=== PATIENT | female | born 1980 | race Caucasian/White ===

== ENCOUNTER 2016-07-15 12:29 | Inpatient (IN) | payer BC, MEDICARE ==
[2016-07-15 12:52] LABS: Glucose,Whole Blood 167 mg/dL (75-99)
--- NOTE | 2016-07-15 13:32 | ED ---
Altered Mental Status HPI - General Chief Complaint: Altered Mental Status Stated Complaint: mental health Time Seen by Provider: 07/15/16 12:29 Source: EMS, RN notes reviewed, old records reviewed Mode of arrival: EMS Limitations: no limitations - History of Present Illness Initial Comments: This is a 36-year-old female history depression who apparently was in the shower for 10 hours until prior to arrival. Her significant other called EMS because she was in the shower when I get out. She was brought in by EMS and she was not very responsive to them with responsive questions are answered. She did maintain a pulse and blood pressure. She demonstrated no respiratory distress he is also demonstrated a very flat affect and would not speak anyone. She apparently has been here with a similar scenario before. No reports of any trauma fevers chills sweats or other symptoms MD Complaint: altered mental status, decreased responsiveness - Related Data Home Medications Medication Instructions Recorded Confirmed Buprenorphine HCl/Naloxone HCl 1.25 film SL DAILY 11/30/15 07/15/16 [Suboxone 8 mg-2 mg Sl Film] Baclofen [Lioresal] 10 mg PO TID 01/27/16 07/15/16 Gabapentin [Neurontin] 100 mg PO TID 01/27/16 07/15/16 traZODone HCL 50 mg PO HS 07/15/16 07/15/16 Allergies Allergy/AdvReac Type Severity Reaction Status Date / Time aspirin Allergy Unknown Verified 07/15/16 12:49 banana Allergy Unknown Verified 07/15/16 12:49 levofloxacin [From Levaquin] Allergy Unknown Verified 07/15/16 12:49 lactose AdvReac Unknown Verified 07/15/16 12:49 Review of Systems ROS Statement: Those systems with pertinent positive or pertinent negative responses have been documented in the HPI. ROS Other: All systems not noted in ROS Statement are negative. Limitations: ROS unobtainable due to patients medical condition Past Medical History Past Medical History: CVA/TIA, Fibromyalgia, Myocardial Infarction ([place]), Seizure Disorder, Thyroid Disorder Additional Past Medical History / Comment(s): Acute kidney injury requiring hemodialysis, Crohn's, CVA at 28 years of age, [place] at 32 years of age, kidney stones. Last Myocardial Infarction Date:: unknown History of Any Multi-Drug Resistant Organisms: MRSA Date of last positivie culture/infection: 16 YEARS AGO MDRO Source:: ARM Past Surgical History: Bowel Resection Additional Past Surgical History / Comment(s): COLON RESECTION AND ILEOSTOMY, LITHOTRIPSY Past Anesthesia/Blood Transfusion Reactions: Unable to Obtain Past Psychological History: Depression Smoking Status: Never smoker Past Alcohol Use History: None Reported Additional Past Alcohol Use History / Comment(s): Patient states she smoked for only a brief period. She lives at home with her . Past Drug Use History: None Reported - Past Family History Mother Family Medical History: Unable to Obtain Father Family Medical History: Unable to Obtain General Exam - General Exam Comments Initial Comments: This is a well-developed well-nourished lethargic appearing female she is tearful but nonverbal Limitations: no limitations General appearance: alert, lethargic Head exam: Present: atraumatic, normocephalic, normal inspection Eye exam: Present: normal appearance, PERRL, EOMI. Absent: scleral icterus, conjunctival injection, periorbital swelling ENT exam: Present: mucous membranes dry Neck exam: Present: normal inspection. Absent: tenderness, meningismus, lymphadenopathy Respiratory exam: Present: normal lung sounds bilaterally. Absent: respiratory distress, wheezes, rales, rhonchi, stridor Cardiovascular Exam: Present: regular rate, normal rhythm, normal heart sounds. Absent: systolic murmur, diastolic murmur, rubs, gallop, clicks GI/Abdominal exam: Present: soft, normal bowel sounds. Absent: distended, tenderness, guarding, rebound, rigid Extremities exam: Present: normal inspection, full ROM, normal capillary refill , other (Cool to touch). Absent: tenderness, pedal edema, joint swelling, calf tenderness Back exam: Present: normal inspection Neurological exam: Present: alert, altered, CN II-XII intact, reflexes normal. Absent: motor sensory deficit Psychiatric exam: Present: depressed, flat affect Skin exam: Present: dry, intact. Absent: rash Course Vital Signs 07/15/16 07/15/16 07/15/16 12:49 13:49 14:51 Temperature 95.4 F L Pulse Rate 72 89 92 Respiratory 16 18 16 Rate Blood Pressure 175/96 142/89 177/78 O2 Sat by Pulse 96 98 99 Oximetry 07/15/16 07/15/16 15:47 16:58 Temperature Pulse Rate 90 80 Respiratory 20 18 Rate Blood Pressure 157/89 137/89 O2 Sat by Pulse 97 97 Oximetry - Reevaluation(s) Reevaluation #1: 07/15/16 18:10 Patient was noted to be somewhat more responsive after IV fluids. Urine output was negligible initially. A Cortez did require placement Medical Decision Making - Medical Decision Making I did discuss the findings with Dr. Gann and Dr. Guerrero. Patient will be admitted to intensive care unit for IV fluids and further management and evaluation. She is more responsive. Nephrology will be consulted. She will be placed on IV antibiotics continued evaluation of possible sepsis. This likely the majority the abnormal labs including the reactive leukocytosis and lactate is secondary to the renal function. The patient did demonstrate oliguria initially until IV fluids were established. The patient thus far as is maintained her blood pressure pulse and respiratory abilities and again has become more responsive - Lab Data Result diagrams: 07/15/16 13:47 07/15/16 13:47 Lab Results 07/15/16 07/15/16 07/15/16 Range/Units 12:42 13:47 13:47 WBC 39.3 H* (3.8-10.6) k/uL RBC 5.36 (3.80-5.40) m/uL Hgb 14.1 (11.4-16.0) gm/dL Hct 44.0 (34.0-46.0) % MCV 82.0 (80.0-100.0) fL MCH 26.3 (25.0-35.0) pg MCHC 32.1 (31.0-37.0) g/dL RDW 14.7 (11.5-15.5) % Plt Count 794 H (150-450) k/uL Neutrophils % 92 % Lymphocytes % 4 % Monocytes % 3 % Eosinophils % 0 % Basophils % 0 % Neutrophils # 36.1 H (1.3-7.7) k/uL Lymphocytes # 1.6 (1.0-4.8) k/uL Monocytes # 1.2 H (0-1.0) k/uL Eosinophils # 0.0 (0-0.7) k/uL Basophils # 0.1 (0-0.2) k/uL Sodium 135 L (137-145) mmol/L Potassium 4.9 (3.5-5.1) mmol/L Chloride 88 L (98-107) mmol/L Carbon Dioxide 13 L (22-30) mmol/L Anion Gap 34 mmol/L BUN 64 H (7-17) mg/dL Creatinine 7.99 H* (0.52-1.04) mg/dL Est GFR (MDRD) Af Amer 7 (>60 ml/min/1.73 sqM) Est GFR (MDRD) Non-Af 6 (>60 ml/min/1.73 sqM) Glucose 179 H (74-99) mg/dL POC Glucose (mg/dL) 167 H (75-99) mg/dL POC Glu Teletype Operator ID Nasima Mcrae Plasma Lactic Acid Brayden (0.7-2.0) mmol/L Calcium 10.8 H (8.4-10.2) mg/dL Magnesium 1.9 (1.6-2.3) mg/dL Total Bilirubin 0.7 (0.2-1.3) mg/dL AST 52 H (14-36) U/L ALT 71 H (9-52) U/L Alkaline Phosphatase 160 H (38-126) U/L Ammonia (<30) umol/L Total Creatine Kinase (30-135) U/L CK-MB (CK-2) (0.0-2.4) ng/mL CK-MB (CK-2) Rel Index Troponin I (0.000-0.034) ng/mL Total Protein 10.6 H (6.3-8.2) g/dL Albumin 5.5 H (3.5-5.0) g/dL Urine Color Urine Appearance (Clear) Urine pH (5.0-8.0) Ur Specific Hermosa (1.001-1.035) Urine Protein (Negative) Urine Glucose (UA) (Negative) Urine Ketones (Negative) Urine Blood (Negative) Urine Nitrate (Negative) Urine Bilirubin (Negative) Urine Urobilinogen (<2.0) mg/dL Ur Leukocyte Esterase (Negative) Urine RBC (0-5) /hpf Urine WBC (0-5) /hpf Urine WBC Clumps (None) /hpf Ur Squamous Epith Cells (0-4) /hpf Urine Bacteria (None) /hpf Hyaline Casts (0-2) /lpf Urine Mucus (None) /hpf Urine Yeast (Budding) (None) /hpf Salicylates <1.0 mg/dL Urine Opiates Screen (NotDetected) Ur Oxycodone Screen (NotDetected) Urine Methadone Screen (NotDetected) Ur Propoxyphene Screen (NotDetected) Acetaminophen <10.0 ug/mL Ur Barbiturates Screen (NotDetected) U Tricyclic Antidepress (NotDetected) Ur Phencyclidine Scrn (NotDetected) Ur Amphetamines Screen (NotDetected) U Methamphetamines Scrn (NotDetected) U Benzodiazepines Scrn (NotDetected) Urine Cocaine Screen (NotDetected) U Marijuana (THC) Screen (NotDetected) Serum Alcohol <10 mg/dL 07/15/16 07/15/16 07/15/16 Range/Units 13:47 14:43 15:47 WBC (3.8-10.6) k/uL RBC (3.80-5.40) m/uL Hgb (11.4-16.0) gm/dL Hct (34.0-46.0) % MCV (80.0-100.0) fL MCH (25.0-35.0) pg MCHC (31.0-37.0) g/dL RDW (11.5-15.5) % Plt Count (150-450) k/uL Neutrophils % % Lymphocytes % % Monocytes % % Eosinophils % % Basophils % % Neutrophils # (1.3-7.7) k/uL Lymphocytes # (1.0-4.8) k/uL Monocytes # (0-1.0) k/uL Eosinophils # (0-0.7) k/uL Basophils # (0-0.2) k/uL Sodium (137-145) mmol/L Potassium (3.5-5.1) mmol/L Chloride (98-107) mmol/L Carbon Dioxide (22-30) mmol/L Anion Gap mmol/L BUN (7-17) mg/dL Creatinine (0.52-1.04) mg/dL Est GFR (MDRD) Af Amer (>60 ml/min/1.73 sqM) Est GFR (MDRD) Non-Af (>60 ml/min/1.73 sqM) Glucose (74-99) mg/dL POC Glucose (mg/dL) (75-99) mg/dL POC Glu Teletype Operator ID Plasma Lactic Acid Brayden 3.4 H* (0.7-2.0) mmol/L Calcium (8.4-10.2) mg/dL Magnesium (1.6-2.3) mg/dL Total Bilirubin (0.2-1.3) mg/dL AST (14-36) U/L ALT (9-52) U/L Alkaline Phosphatase (38-126) U/L Ammonia <9 (<30) umol/L Total Creatine Kinase 293 H (30-135) U/L CK-MB (CK-2) 4.5 H* (0.0-2.4) ng/mL CK-MB (CK-2) Rel Index 1.5 Troponin I <0.012 (0.000-0.034) ng/mL Total Protein (6.3-8.2) g/dL Albumin (3.5-5.0) g/dL Urine Color Urine Appearance (Clear) Urine pH (5.0-8.0) Ur Specific [place] (1.001-1.035) Urine Protein (Negative) Urine Glucose (UA) (Negative) Urine Ketones (Negative) Urine Blood (Negative) Urine Nitrate (Negative) Urine Bilirubin (Negative) Urine Urobilinogen (<2.0) mg/dL Ur Leukocyte Esterase (Negative) Urine RBC (0-5) /hpf Urine WBC (0-5) /hpf Urine WBC Clumps (None) /hpf Ur Squamous Epith Cells (0-4) /hpf Urine Bacteria (None) /hpf Hyaline Casts (0-2) /lpf Urine Mucus (None) /hpf Urine Yeast (Budding) (None) /hpf Salicylates mg/dL Urine Opiates Screen (NotDetected) Ur Oxycodone Screen (NotDetected) Urine Methadone Screen (NotDetected) Ur Propoxyphene Screen (NotDetected) Acetaminophen ug/mL Ur Barbiturates Screen (NotDetected) U Tricyclic Antidepress (NotDetected) Ur Phencyclidine Scrn (NotDetected) Ur Amphetamines Screen (NotDetected) U Methamphetamines Scrn (NotDetected) U Benzodiazepines Scrn (NotDetected) Urine Cocaine Screen (NotDetected) U Marijuana (THC) Screen (NotDetected) Serum Alcohol mg/dL 03/10/17 Range/Units 16:28 WBC (3.8-10.6) k/uL RBC (3.80-5.40) m/uL Hgb (11.4-16.0) gm/dL Hct (34.0-46.0) % MCV (80.0-100.0) fL MCH (25.0-35.0) pg MCHC (31.0-37.0) g/dL RDW (11.5-15.5) % Plt Count (150-450) k/uL Neutrophils % % Lymphocytes % % Monocytes % % Eosinophils % % Basophils % % Neutrophils # (1.3-7.7) k/uL Lymphocytes # (1.0-4.8) k/uL Monocytes # (0-1.0) k/uL Eosinophils # (0-0.7) k/uL Basophils # (0-0.2) k/uL Sodium (137-145) mmol/L Potassium (3.5-5.1) mmol/L Chloride (98-107) mmol/L Carbon Dioxide (22-30) mmol/L Anion Gap mmol/L BUN (7-17) mg/dL Creatinine (0.52-1.04) mg/dL Est GFR (MDRD) Af Amer (>60 ml/min/1.73 sqM) Est GFR (MDRD) Non-Af (>60 ml/min/1.73 sqM) Glucose (74-99) mg/dL POC Glucose (mg/dL) (75-99) mg/dL POC Glu Teletype Operator ID Plasma Lactic Acid Brayden (0.7-2.0) mmol/L Calcium (8.4-10.2) mg/dL Magnesium (1.6-2.3) mg/dL Total Bilirubin (0.2-1.3) mg/dL AST (14-36) U/L ALT (9-52) U/L Alkaline Phosphatase (38-126) U/L Ammonia (<30) umol/L Total Creatine Kinase (30-135) U/L CK-MB (CK-2) (0.0-2.4) ng/mL CK-MB (CK-2) Rel Index Troponin I (0.000-0.034) ng/mL Total Protein (6.3-8.2) g/dL Albumin (3.5-5.0) g/dL Urine Color Light Red Urine Appearance Turbid H (Clear) Urine pH 5.5 (5.0-8.0) Ur Specific [place] 1.016 (1.001-1.035) Urine Protein 2+ H (Negative) Urine Glucose (UA) Negative (Negative) Urine Ketones Negative (Negative) Urine Blood Large H (Negative) Urine Nitrate Negative (Negative) Urine Bilirubin Negative (Negative) Urine Urobilinogen <2.0 (<2.0) mg/dL Ur Leukocyte Esterase Large H (Negative) Urine RBC >182 H (0-5) /hpf Urine WBC 56 H (0-5) /hpf Urine WBC Clumps Many H (None) /hpf Ur Squamous Epith Cells 1 (0-4) /hpf Urine Bacteria Many H (None) /hpf Hyaline Casts 139 H (0-2) /lpf Urine Mucus Few H (None) /hpf Urine Yeast (Budding) Many H (None) /hpf Salicylates mg/dL Urine Opiates Screen Not Detected (NotDetected) Ur Oxycodone Screen Not Detected (NotDetected) Urine Methadone Screen Not Detected (NotDetected) Ur Propoxyphene Screen Not Detected (NotDetected) Acetaminophen ug/mL Ur Barbiturates Screen Not Detected (NotDetected) U Tricyclic Antidepress Not Detected (NotDetected) Ur Phencyclidine Scrn Not Detected (NotDetected) Ur Amphetamines Screen Not Detected (NotDetected) U Methamphetamines Scrn Not Detected (NotDetected) U Benzodiazepines Scrn Detected H (NotDetected) Urine Cocaine Screen Not Detected (NotDetected) U Marijuana (THC) Screen Detected H (NotDetected) Serum Alcohol mg/dL - EKG Data -: EKG Interpreted by Fl EKG shows normal: sinus rhythm (Sinus rhythm a rate of 99 appear of 01 18 QRS duration 82 QT/QTC of 398/510 right atrial enlargement prolonged QT st-t wave changes. When compared to an EKG dated 01/23/16 no acute changes.) - Radiology Data Radiology results: report reviewed (Did review the imaging and report no acute findings.), image reviewed Critical Care Time Critical Care Time: Yes Critical Care Time: 45 minutes of critical care time which included the initial monitoring of the EMS run and discussed with paramedics. History physical examination lab and x- ray orders on the patient. CAT scan orders on the patient. Multiple reevaluation the patient for response to therapy. Discussion with the physicians. Orders and documentation above. Also review of history. Disposition Clinical Impression: Acute encephalopathy, Acute renal failure (ARF), Sepsis, Leukocytosis Disposition: ADMITTED IP TO THIS HOSP Condition: Serious
--- NOTE | 2016-07-15 13:43 | XR ---
EXAMINATION TYPE: XR chest 1V portable DATE OF EXAM: 07/15/2016 1:33 PM COMPARISON: 01/26/2016 HISTORY: Altered mental status TECHNIQUE: Single frontal view of the chest is obtained. FINDINGS: There is no focal air space opacity, pleural effusion, or pneumothorax seen. The cardiac silhouette size is within normal limits. The osseous structures are intact. Surgical clips in the r ight upper quadrant abdomen. IMPRESSION: No acute process.
[2016-07-15 14:07] LABS: Basophils # (A) 0.1 k/uL (0-0.2); Basophils % (A) 0 %; Eosinophils % (A) 0 %; HDW 2.85; HGB 14.1 gm/dL (11.4-16.0); Luc # (Auto) 0.24; Luc % (Auto) 1; Lymphocytes # (A) 1.6 k/uL (1.0-4.8); Lymphocytes % (A) 4 %; MCH 26.3 pg (25.0-35.0); MCHC 32.1 g/dL (31.0-37.0); Mean Platelet Volume 6.8; Monocytes # (A) 1.2 k/uL (0-1.0); Monocytes % (A) 3 %; Neutrophils # (A) 36.1 k/uL (1.3-7.7); Neutrophils % (A) 92 %; RBC 5.36 m/uL (3.80-5.40); RDW 14.7 % (11.5-15.5); WBC (Perox) 39.63
[2016-07-15 14:10] LABS: WBC 39.3 k/uL (3.8-10.6)
[2016-07-15 14:15] LABS: ALT 71 U/L (9-52); AST 52 U/L (14-36); Acetaminophen <10.0 ug/mL; Alcohol <10 mg/dL; Alkaline Phosphatase 160 U/L (38-126); Anion Gap 34 mmol/L; Blood Urea Nitrogen 64 mg/dL (7-17); Calcium 10.8 mg/dL (8.4-10.2); Carbon Dioxide 13 mmol/L (22-30); Chloride 88 mmol/L (98-107); Glucose 179 mg/dL (74-99); Magnesium 1.9 mg/dL (1.6-2.3); Potassium 4.9 mmol/L (3.5-5.1); Salicylate <1.0 mg/dL; Sodium 135 mmol/L (137-145); Total Bilirubin 0.7 mg/dL (0.2-1.3); Total Protein 10.6 g/dL (6.3-8.2)
[2016-07-15 14:21] LABS: Non-African American GFR(MDRD) 6 (>60 ml/min/1.73 sqM)
[2016-07-15] MEDS ORDERED: SODIUM CHLORIDE 0.9% 4,000 ML IV ONE (14:29)
[2016-07-15 15:05] LABS: Creatine Kinase 293 U/L (30-135)
[2016-07-15 15:19] LABS: Troponin I <0.012 ng/mL (0.000-0.034)
[2016-07-15 15:25] LABS: Creatine Kinase MB 4.5 ng/mL (0.0-2.4)
[2016-07-15] MEDS ORDERED: PIPERACILLIN-TAZOBACTAM 3.375 GM in DEXTROSE/WATER 1 50ML.BAG IVPB STA (15:25)
[2016-07-15 16:46] LABS: Appearance,Urine Turbid (Clear); Bacteria,Urine Many /hpf; Bilirubin,Urine Negative (Negative); Glucose,Urine (UA) Negative (Negative); Ketones,Urine Negative (Negative); Leukocyte Esterase,Urine Large (Negative); Mucus,Urine Few /hpf; Nitrite,Urine Negative (Negative); PH, Urine 5.5 (5.0-8.0); Particle Count 44790; Protein,Urine 2+ (Negative); RBC,Urine >182 /hpf (0-5); Specific Gravity,Urine 1.016 (1.001-1.035); Squamous Epithelial Cell,Urine 1 /hpf (0-4); UA Billing (MACRO vs. MICRO) MICRO; Urobilinogen,Urine <2.0 mg/dL (<2.0); WBC,Urine 56 /hpf (0-5)
[2016-07-15] MEDS: SODIUM CHLORIDE 0.9% 1,000 ML IV SCH ×2 (18:41→21:25)
[2016-07-15 19:41] LABS: Glucose,Whole Blood 115 mg/dL (75-99)
--- NOTE | 2016-07-15 21:15 | HP ---
DATE OF ADMISSION: 07/15/2016 CHIEF COMPLAINT: Mental status changes. HISTORY OF PRESENT ILLNESS: This is the first admission for this 36-year-old white male. History is confusing. She apparently was found in the shower after having been in there for 10 and one half hours. How this is determined is not known. She came in to the Emergency Room Department very lethargic and minimally arousable. It is not known if drugs were involved. In the emergency room, her white count was 39,000. Creatinine was 7.1. Lactate was 3.4. There is nothing else known about her current history of present illness or past medical history. PHYSICAL EXAMINATION: Blood pressure is 96/64 with a pulse of 81. Respirations 16, she is afebrile. GENERAL: She appeared to be slender and very lethargic. There are no signs of trauma including ecchymoses, lacerations, etc. Her pupils were difficult to assess because she was uncooperative. CHEST: Clear. CARDIAC: Demonstrated with sounds like sinus rhythm soft and there are no masses. EXTREMITIES: No clubbing. She is extremely lethargic. Toes are downgoing. She is admitted to the hospital with diagnoses: 1. Mental status changes ( ). 2. Leukocytosis. 3. Renal failure. PLAN: 1. Bed rest. 2. IV fluids. 3. Frequent monitoring of her neurologic status and vital signs. 4. Drug screen. 5. Correct acidosis. 6. Monitor renal function closely, which was probably due to prerenal azotemia.
[2016-07-16] MEDS: HEPARIN SODIUM,PORCINE 5,000 UNIT/ML 1 ML VIAL SQ SCH ×4 (00:10→23:00)
[2016-07-16 05:58] LABS: Basophils # (A) 0.1 k/uL (0-0.2); Basophils % (A) 0 %; CH 26.3; CHCM 30.1; Eosinophils % (A) 0 %; HCT 33.9 % (34.0-46.0); HDW 2.63; Hypochromasia Marked; Luc # (Auto) 0.25; Luc % (Auto) 2; Lymphocytes # (A) 1.5 k/uL (1.0-4.8); Lymphocytes % (A) 9 %; MCH 26.7 pg (25.0-35.0); MCHC 30.5 g/dL (31.0-37.0); Mean Platelet Volume 6.8; Monocytes % (A) 6 %; Neutrophils # (A) 13.8 k/uL (1.3-7.7); Neutrophils % (A) 83 %; RBC 3.88 m/uL (3.80-5.40); RDW 14.6 % (11.5-15.5); WBC 16.6 k/uL (3.8-10.6); WBC (Perox) 16.74
[2016-07-16 06:02] LABS: HGB 10.3 gm/dL (11.4-16.0); MCV 87.4 fL (80.0-100.0)
[2016-07-16 06:11] LABS: Calcium 8.8 mg/dL (8.4-10.2); Magnesium 1.9 mg/dL (1.6-2.3); Phosphorous 4.5 mg/dL (2.5-4.5); Potassium 3.6 mmol/L (3.5-5.1)
[2016-07-16] MEDS: ONDANSETRON ODT 4 MG TAB PO PRN ×2 (07:19→22:54)
[2016-07-16] MEDS: SODIUM CHLORIDE 0.9% 1,000 ML IV SCH ×3 (10:42→22:07)
[2016-07-16] MEDS: PANTOPRAZOLE 40 MG/10 ML VIAL IV SCH (10:42)
--- NOTE | 2016-07-16 11:04 | CONS ---
DATE OF CONSULTATION: 07/16/2016 REASON FOR CONSULTATION: Renal failure. HISTORY OF PRESENT ILLNESS: Patient is a 36-year-old white female who was admitted from the emergency room with complaints of altered mental status. Patient was apparently in the bathtub for about 10 hours. I am not sure if there was water in it, but she was confused. Patient has not been hypotensive. Her labs showed a serum creatinine of 7.9 with a CO2 of 13 and patient was admitted to the ICU. She has received about 4 L of fluid bolus in the ER. She currently has good urine output and her creatinine is down to 2.9. At this point, patient is sitting up and she is inducing vomiting. There is no active bleeding noted. UA was positive for urinary tract infection. The patient is maintained on empiric antibiotics. However, her IV went bad and currently she has no IV access. No complaints of fever. No chest pain, shortness of breath prior to admission. There is no prior history of kidney diseases. PAST MEDICAL HISTORY: Crohn disease. history of CVA/TIA, fibromyalgia, prior history of acute kidney injury requiring dialysis, history of NC at 32 years of age, nephrolithiasis, seizure disorder, hypothyroidism, previous history of MRSA infection. PAST SURGICAL HISTORY: Bowel resection with ileostomy. SOCIAL HISTORY: Positive for depression. No history of drug abuse or alcohol abuse. The patient lives at home with her fiance. Medications at home prior to admission included Suboxone, baclofen, Neurontin, trazodone. Allergies include ASPIRIN, BANANAS, LEVAQUIN and LACTOSE. REVIEW OF SYSTEMS: As per HPI. Other systems negative. On examination, the patient is currently comfortable. She is inducing vomiting. She is not in any acute distress. Blood pressure is 102/54, heart rate 70 per minute. She is afebrile. EXAMINATION OF THE HEART: S1 and S2. EXAMINATION OF LUNGS: Decreased breath sounds in bases. ABDOMEN: Soft, nontender. Ileostomy is noted. Examination of lower extremities shows no significant edema. Labs show sodium 141, potassium 3.6, chloride 111, CO2 is 16. Hemoglobin 10.3 g/dL. UA shows more than 182 WBCs with many WBC clumps, hyaline casts, budding yeasts. Drug screen was positive for benzos and marijuana. ASSESSMENT: 1. Acute kidney injury, acute tubular necrosis, currently nonoliguric and improving. 2. History of acute kidney injury requiring dialysis previously as noted in the history. 3. Severe metabolic acidosis secondary to renal failure as well as lactic acidosis, currently status post fluid resuscitation. I will continue with the normal saline once the IV has been established. 4. Urinary tract infection, maintained on Zosyn. PLAN: Resume IV fluids once IV access is obtained. Continue antibiotics. Follow up on urine cultures. Repeat labs in the a.m. Thank you for this consultation. Will continue to follow the patient with you during her hospitalization.
[2016-07-16] MEDS: PIPERACILLIN-TAZOBACTAM 3.375 GM in DEXTROSE/WATER 1 50ML.BAG IVPB SCH ×4 (11:32→22:54)
--- NOTE | 2016-07-16 12:00 | P.CNPUL ---
History of Present Illness Consult date: 07/16/16 Requesting physician: Chato Gann Reason for consult: other (Critical care management) Chief complaint: Altered mental status History of present illness: This is a 36-year-old female patient with a history of CVA/TIA, fibromyalgia, seizure disorder, hypothyroidism, myocardial infarction, nephrolithiasis. She also has a history of colon resection and ileostomy moderate depression, previous narcotic abuse and currently on Suboxone. She presented here after being found by her on the floor of the shower. She had been there possibly as long as 10 hours. She was quite obtunded on arrival but able to protect her airway. Her urine drug screen was positive for benzodiazepines and THC. Her urine appears infected. She is currently on Zosyn. Her initial lactic acid was 3.4 and she did receive 4 L of normal saline. She was admitted here to the intensive care unit for the same. She is seen today in consultation. She has been arousable but disoriented and trying to climb out of bed. She has been treated with Klonopin thus far. She has been hemodynamically stable. She is maintaining good O2 saturations in the 90s on room air. Her chest x-ray shows no acute pulmonary process. She did have significant acute renal failure secondary to dehydration with a creatinine of 7.99 currently at 2.90. Nephrology has been consulted. She is getting a 0.9 normal saline at 150 MLS per hour. Review of Systems ROS unobtainable: due to mental status Past Medical History Past Medical History: CVA/TIA, Fibromyalgia, Myocardial Infarction ([place]), Seizure Disorder, Thyroid Disorder Additional Past Medical History / Comment(s): Acute kidney injury requiring hemodialysis, Crohn's, CVA at 28 years of age, [place] at 32 years of age, kidney stones. Last Myocardial Infarction Date:: unknown History of Any Multi-Drug Resistant Organisms: MRSA Date of last positivie culture/infection: 16 YEARS AGO MDRO Source:: ARM Past Surgical History: Bowel Resection Additional Past Surgical History / Comment(s): COLON RESECTION AND ILEOSTOMY, LITHOTRIPSY Past Anesthesia/Blood Transfusion Reactions: Unable to Obtain Past Psychological History: Depression Smoking Status: Smoker, current status unknown Past Alcohol Use History: None Reported Additional Past Alcohol Use History / Comment(s): Patient states she smoked for only a brief period. She lives at home with her significant other. Past Drug Use History: None Reported - Past Family History Mother Family Medical History: Unable to Obtain Father Family Medical History: Unable to Obtain Medications and Allergies Home Medications Medication Instructions Recorded Confirmed Type Buprenorphine HCl/Naloxone HCl 1.25 film SL DAILY 11/30/15 07/15/16 History [Suboxone 8 mg-2 mg Sl Film] Baclofen [Lioresal] 10 mg PO TID 01/27/16 07/15/16 History Gabapentin [Neurontin] 100 mg PO TID 01/27/16 07/15/16 History traZODone HCL 50 mg PO HS 07/15/16 07/15/16 History Allergies Allergy/AdvReac Type Severity Reaction Status Date / Time aspirin Allergy Unknown Verified 07/15/16 12:49 banana Allergy Unknown Verified 07/15/16 12:49 levofloxacin [From Levaquin] Allergy Unknown Verified 07/15/16 12:49 lactose AdvReac Unknown Verified 07/15/16 12:49 Physical Exam Vitals: Vital Signs Temp Pulse Resp BP Pulse Ox 07/16/16 11:00 65 20 91/69 99 07/16/16 10:00 65 18 106/56 97 07/16/16 09:00 72 9 L 106/56 98 07/16/16 08:00 96.8 F L 84 23 106/56 98 07/16/16 06:00 61 16 105/46 97 07/16/16 05:00 70 29 H 102/54 97 07/16/16 04:00 98.9 F 86 22 109/61 94 L 07/16/16 03:00 62 17 96/48 99 07/16/16 02:00 82 17 123/62 97 07/16/16 01:00 72 18 124/68 100 07/16/16 00:00 71 19 115/63 100 07/15/16 23:30 77 17 100/55 99 07/15/16 23:19 74 19 100/55 99 07/15/16 23:00 76 20 114/59 98 07/15/16 22:30 71 17 111/69 100 07/15/16 22:00 76 17 110/64 100 07/15/16 21:30 78 19 107/56 98 07/15/16 21:00 82 18 108/54 95 07/15/16 20:30 83 21 133/67 98 07/15/16 20:00 97.4 F L 81 21 113/58 100 07/15/16 19:32 96 100 07/15/16 18:51 98.2 F 84 18 149/80 98 Intake and Output 07/15/16 07/16/16 07/16/16 22:59 06:59 14:59 Intake Total 600 1237.5 0 Output Total 225 480 145 Balance 375 757.5 -145 Intake: Intake, IV Titration 600 1237.5 0 Amount Piperacillin-Tazobactam 3 12.5 .375 gm In Dextrose/Water 1 50ml.bag @ 12.5 mls/hr IVPB ONCE [facility] Rx#: [id number] Piperacillin-Tazobactam 3 25.0 .375 gm In Dextrose/Water 1 50ml.bag @ 12.5 mls/hr IVPB Q8HR [facility] Rx#: [id number] Sodium Chloride 0.9% 1, 600 1200 0 000 ml @ 150 mls/hr IV . Q6H40M [facility] Rx#:[id number] Output: Urine 225 480 145 Other: Voiding Method Indwelling Catheter Indwelling Catheter Indwelling Catheter Weight 44.5 kg 46.5 kg GENERAL EXAM: Alert, active, comfortable in no apparent distress. HEAD: Normocephalic. EYES: Normal reaction of pupils, equal size. NOSE: Clear with pink turbinates. THROAT: No erythema or exudates. NECK: No masses, no JVD. CHEST: No chest wall deformity. LUNGS: Equal air entry with no crackles, wheeze, rhonchi or dullness. CVS: S1 and S2 normal with no audible mumurs, regular rhythm. ABDOMEN: No hepatosplenomegaly, normal bowel sounds, no guarding or rigidity. SPINE: No scoliosis or deformity SKIN: No rashes CENTRAL NERVOUS SYSTEM: No focal deficits, tone is normal in all 4 extremities. Extremities: There is no significant peripheral edema. No clubbing, no cyanosis. Peripheral pulses are intact. Results - Laboratory Findings CBC and BMP: 07/16/16 05:29 07/16/16 05:29 Abnormal lab findings: Abnormal Labs 07/15/16 07/16/16 07/16/16 19:38 05:29 05:29 WBC 16.6 H Hgb 10.3 L D Hct 33.9 L MCHC 30.5 L Neutrophils # 13.8 H APTT Chloride 111 H Carbon Dioxide 16 L BUN 45 H Creatinine 2.90 H POC Glucose (mg/dL) 115 H CK-MB (CK-2) 07/16/16 07/16/16 05:29 05:29 WBC Hgb Hct MCHC Neutrophils # APTT 17.8 L Chloride Carbon Dioxide BUN Creatinine POC Glucose (mg/dL) CK-MB (CK-2) 13.8 H* - Diagnostic Findings Chest x-ray: image reviewed (No acute pulmonary process.) Assessment and Plan Plan: Impression: #1 Altered mental status secondary to suspected overdose of benzodiazepines and marijuana. #2 Sepsis secondary to acute urinary tract infection. #3 Urinary tract infection secondary to suspected gram-negative bacilli. #4 Lactic acidosis secondary to above, initially 3.4, improved, currently 1.8. #5 Acute renal failure secondary to severe dehydration and volume depletion. Initial creatinine 7.99, currently 2.90. Previous history of acute kidney injury requiring hemodialysis in the past. #6 History of narcotic abuse, currently on Suboxone. #7 History of CVA. #8 History of colon resection and ileostomy secondary to Crohn's disease. #9 History of nephrolithiasis with previous lithotripsy. #10 History of seizure disorder. #11 History of depression. Plan: The patient was seen and evaluated by Dr. Guerrero. Her chest x-ray and labs were reviewed. We'll continue with antibiotics in the form of Zosyn. She remains on heparin for DVT prophylaxis and Protonix for GI prophylaxis. We'll continue with hydration it 0.9 normal saline 150 mL per hour. Nephrology has been consulted. Psychiatric services has been consulted as well. The patient is stable from the pulmonary and critical care standpoint and could be transferred to the regular medical floor with a safety compliance specialist in place 28/11. We'll continue to follow make further recommendations based on her clinical status.
[2016-07-16] MEDS ORDERED: SODIUM CHLORIDE 0.9% 500 ML IV ONE (12:20)
[2016-07-16] MEDS: traMADol 50 MG TAB PO PRN ×2 (15:21→20:43)
--- NOTE | 2016-07-16 17:41 | PN ---
DATE OF SERVICE: 07/16/2016 CHIEF COMPLAINT: Mental status changes. HISTORY OF PRESENT ILLNESS: This lady is starting to become a little bit more awake and alert. There is still no precise history of exactly what happened. Drug screen is unremarkable except for benzodiazepines and marijuana. She has no focal neurologic deficits. REVIEW OF SYSTEMS: Not obtainable. PHYSICAL EXAMINATION: Her vital signs are normal. Head, ears, eyes, mouth, and throat are normal. NECK: Neck veins not distended. CHEST: Clear. CARDIAC: Normal soft and nontender. EXTREMITIES: Normal. IMPRESSION: 1. Mental status changes; etiology unknown. 2. History of psychiatric disorders. PLAN: Continue with supportive care and so. She is awake enough and alert enough to be moved to regular floor. We will also obtain a psych consult.
[2016-07-16] MEDS: clonazePAM 1 MG TAB PO PRN (18:06)
[2016-07-17] MEDS: clonazePAM 1 MG TAB PO PRN ×2 (01:18→22:04)
[2016-07-17] MEDS: traMADol 50 MG TAB PO PRN ×4 (04:16→22:04)
[2016-07-17] MEDS: SODIUM CHLORIDE 0.9% 1,000 ML IV SCH ×4 (04:19→23:50)
[2016-07-17] MEDS: PIPERACILLIN-TAZOBACTAM 3.375 GM in DEXTROSE/WATER 1 50ML.BAG IVPB SCH ×3 (07:59→23:50)
[2016-07-17] MEDS: HEPARIN SODIUM,PORCINE 5,000 UNIT/ML 1 ML VIAL SQ SCH ×3 (08:00→23:53)
[2016-07-17] MEDS: PANTOPRAZOLE 40 MG/10 ML VIAL IV SCH (08:00)
[2016-07-17 08:24] LABS: Basophils # (A) 0.1 k/uL (0-0.2); Basophils % (A) 1 %; CHCM 32.5; Eosinophils # (A) 0.1 k/uL (0-0.7); Eosinophils % (A) 1 %; HCT 29.5 % (34.0-46.0); HDW 2.81; HGB 9.4 gm/dL (11.4-16.0); Luc # (Auto) 0.28; Luc % (Auto) 2; Lymphocytes # (A) 1.7 k/uL (1.0-4.8); Lymphocytes % (A) 15 %; MCH 26.5 pg (25.0-35.0); MCHC 31.8 g/dL (31.0-37.0); MCV 83.4 fL (80.0-100.0); Mean Platelet Volume 6.5; Monocytes # (A) 1.2 k/uL (0-1.0); Monocytes % (A) 10 %; Neutrophils # (A) 8.5 k/uL (1.3-7.7); Neutrophils % (A) 72 %; RBC 3.53 m/uL (3.80-5.40); RDW 15.3 % (11.5-15.5); WBC 11.9 k/uL (3.8-10.6); WBC (Perox) 12.71
[2016-07-17 08:33] LABS: Calcium 8.5 mg/dL (8.4-10.2); Magnesium 1.6 mg/dL (1.6-2.3); Phosphorous 2.3 mg/dL (2.5-4.5)
[2016-07-17 08:45] LABS: Potassium 2.7 mmol/L (3.5-5.1)
[2016-07-17] MEDS: POTASSIUM CHLORIDE ER 20 MEQ TAB.ER PO SCH ×2 (09:57→10:59)
[2016-07-17] MEDS: MAGNESIUM SULFATE-D5W PMX 1 GM in DEXTROSE/WATER 1 100ML.BAG IVPB SCH ×2 (09:57→11:04)
[2016-07-17] MEDS: ONDANSETRON ODT 4 MG TAB PO PRN (10:59)
[2016-07-17] MEDS ORDERED: POTASSIUM CHLORIDE ER 20 MEQ TAB.ER PO SCH (11:00)
[2016-07-17 15:55] LABS: Magnesium 2.8 mg/dL (1.6-2.3); Potassium 4.1 mmol/L (3.5-5.1)
[2016-07-17] MEDS ORDERED: IOHEXOL 350 MG/ML 25 ML BOTTLE (ORAL USE) PO PRN (16:04)
[2016-07-17] MEDS: IOHEXOL 350 MG/ML 25 ML BOTTLE (ORAL USE) PO PRN ×2 (16:51→17:52)
[2016-07-17 16:58] LABS: Amylase 81 U/L (30-110)
--- NOTE | 2016-07-17 17:25 | XR ---
EXAMINATION TYPE: XR abdomen 1V DATE OF EXAM: 07/17/2016 5:14 PM CLINICAL HISTORY: Abdominal pain with urinary infection, history of Crohn's disease and bowel resecti on. TECHNIQUE: Single portable supine KUB image of the abdomen is obtained. COMPARISON: CT abdomen and pelvis and abdominal x-ray December 17, 2015 FINDINGS: There is some paucity of bowel gas. Visualized gas is noted in nondistended small bowel loo ps. Cholecystectomy clips are present. Lung bases are not included. Spina bifida defect S1 level is n oted. IMPRESSION: Overall nonspecific bowel gas pattern.
--- NOTE | 2016-07-17 17:39 | P.CN ---
Psychiatric Consult - . Consult:: 07/17/16 17:28 This patient is a 36-year-old single female who was admitted to the medical floor with acute mental status changes. Apparently the patient was found at home in the shower after several hours. She has had prior hospitalizations for similar presentations. The patient is lying in bed she is alert. She reports that her mood has been stable she does not report any recent depressive symptoms. She is endorsing no tearfulness or crying spells. She states she does not feel hopeless and she reports no suicidal ideation intent or plan. She is reporting no homicidal ideation intent or plan. She is endorsing no auditory or visual hallucinations or any specific delusions. There is some concern that she may have overused her medications. She did have benzodiazepines in her urine drug screen during our interview she denies taking those. She is on Suboxone for pain. She reports using Suboxone only as prescribed. The patient presented with a urinary tract infection with possible sepsis, lactic acidosis, and acute renal failure. Past psychiatric history: The patient states that she has been admitted for inpatient psychiatric care previously does not specify how many times or when. She denies any history of suicide attempts. It is unclear if she has any outpatient mental health services. There is some question as to whether not she has been taking Zoloft. There is some documentation that she has been on trazodone in the past. Past medical history: History of cerebral vascular accident versus TIA, myocardial infarction, seizure disorder, hypothyroidism, Crohn's disease status post partial colon resection with colostomy. ALLERGIES: Aspirin, Levaquin, lactulose Chemical dependency history: The patient denies any use of alcohol or illicit drugs. Her urine drug screen was positive for marijuana. She denies being in inpatient chemical dependency treatment in the past. Social history: The patient is 36 years old she states she is engaged she lives with her fianc. She reports having no children she has a high school education plus some college education. Mental status exam: The patient is a female lying in the hospital bed she is awake she is dressed in hospital attire. Eye contact is intermittent she stares at the TV screen for most of the session. She has an abrupt quality to her speech pattern which may be related to either current delirium or her past stroke. There is some delay in answering questions. She states her mood is "good" affect is flat. There is no change in affect during the session. She describes having no suicidal or homicidal ideation intent or plan. She is endorsing no auditory or visual hallucinations she is endorsing no specific delusions. Insight and judgment appear to be limited at this time. She is oriented to person place month and year she could not name the day the week. There was no verbal or physical aggressiveness demonstrated. Impressions 1. History of major depressive disorder, suspect current delirium due to multifactorial causes, rule out opiate use disorder 2. Medical comorbidities include history of stroke versus TIA, myocardial infarction, fibromyalgia, seizure disorder, hypothyroidism, Crohn's Plan: The patient likely has some element of delirium due to the metabolic abnormalities documented. She verbalizes no suicidal ideation intent or plan. The patient's current corporate safety director and nursing staff states she has made no suicidal statements. It is possible she could be overusing Suboxone in the context of a benzodiazepine. We will try to discuss this further with subsequent visits. She does not appear to require inpatient psychiatric treatment. We will continue to follow while medically admitted. 07/17/16 17:31
[2016-07-17] MEDS: HYDROcodone/APAP 5-325MG 1 EACH TAB PO PRN (18:58)
--- NOTE | 2016-07-17 19:30 | CT ---
EXAMINATION TYPE: CT abdomen pelvis wo con DATE OF EXAM: 07/17/2016 7:06 PM HISTORY: generalized pain CT DLP: 219 mGycm. Automated Exposure Control for Dose Reduction was Utilized. TECHNIQUE: CT scan of the abdomen and pelvis is performed with oral but without IV contrast. COMPARISON: CT abdomen and pelvis January 10, 2016. FINDINGS: Within the limitations of a non-contrast study, the following observations are made. LUNG BASES: Linear atelectatic change posteriorly in both lung bases is present. LIVER/GB: Cholecystectomy clips are redemonstrated.. PANCREAS: No significant abnormality is seen. SPLEEN: No significant abnormality is seen. ADRENALS: No significant abnormality is seen. KIDNEYS: There is redemonstration of 15 mm calculus in right renal pelvis and UPJ stable in size and position. BOWEL: The oral contrast reaches level of the right colon. There is no suspicious small bowel dilatat ion. There is severe wall thickening of the distal bowel seen best coronal image 19. This leads into right sided ostomy. Some mild to moderate wall thickening extends into the terminal ileum. Remainder of colon is felt surgically absent. Some diffuse areas of mild wall thickening involving the left low er quadrant jejunal loops is felt present GENITAL ORGANS: No gross abnormality seen. LYMPH NODES: No greater than 1cm abdominal or pelvic lymph nodes are appreciated. OSSEOUS STRUCTURES: Spina bifida defect S1 level is felt present. OTHER: Mild diffuse subcutaneous edema or soft tissue anasarca is noted. IMPRESSION: I suspect total colectomy with colonized distal ileum or near-total colectomy with marked inflammatory change involving the distal bowel from ostomy over moderate to large segment in the rig ht abdomen. Cannot exclude some skip lesion or mild inflammatory change involving jejunal loops in th e left lower quadrant though noted less prominent.
--- NOTE | 2016-07-17 19:55 | PN ---
Patient is seen for follow-up for acute kidney injury. She has been maintained on IV fluids. Renal function has improved with serum creatinine down to 1.4 from 7.9 mg/dL on initial admission. Her potassium was also low at 2.7 which is currently being replaced. Yesterday patient was inducing vomiting. Currently she is lying in bed, but is asking for pain medication. On examination, blood pressure 97/53, heart rate 85 per minute. She is afebrile. Examination of the heart S1 and S2. Examination of the lungs: Bilateral breath sounds are heard. Decreased breath sounds in bases. ABDOMEN: Soft. Excoriation noted around the ostomy site. Labs show potassium 2.7. Repeat potassium was 4.1. Hemoglobin 9.4 g/dL. ASSESSMENT: 1. Acute kidney injury, prerenal currently significantly improved. 2. Gram-negative urinary tract infection, maintained on Zosyn. 3. History of Crohn's disease, status post bowel resection and ileostomy. PLAN: Continue IV fluids. Replace potassium aggressively. Repeat labs in a.m.
--- NOTE | 2016-07-17 22:39 | PN ---
CHIEF COMPLAINT: 1. Mental status changes. 2. Abdominal pain. 3. Lethargy. HISTORY OF PRESENT ILLNESS: This lady continues to be a problem. She still is not fully awake and speaking normally. She is complaining of abdominal pain and demanding IV analgesics. She has had a colectomy for Crohn's. PHYSICAL EXAMINATION: Chest is clear. CARDIAC: Normal. Abdomen is flat, soft and nontender. There is some maceration around her ileostomy in the right abdomen. ABDOMEN: Bowel sounds are normal. IMPRESSION: 1. Epigastric pain. 2. Laceration around her ileostomy. 3. Mental status changes. 4. History of substance abuse. PLAN: 1. Have ostomy nurse evaluate her ileostomy. 2. To continue on current program. 3. She is demanding IV analgesics and these will be refused for now.
[2016-07-18] MEDS: SODIUM CHLORIDE 0.9% 1,000 ML IV SCH (06:11)
[2016-07-18] MEDS: HEPARIN SODIUM,PORCINE 5,000 UNIT/ML 1 ML VIAL SQ SCH ×3 (07:52→23:50)
[2016-07-18] MEDS: PIPERACILLIN-TAZOBACTAM 3.375 GM in DEXTROSE/WATER 1 50ML.BAG IVPB SCH ×2 (07:52→17:31)
[2016-07-18] MEDS: PANTOPRAZOLE 40 MG/10 ML VIAL IV SCH (07:53)
[2016-07-18] MEDS: HYDROcodone/APAP 5-325MG 1 EACH TAB PO PRN ×2 (07:53→16:07)
[2016-07-18] MEDS: clonazePAM 1 MG TAB PO PRN ×2 (08:10→16:08)
[2016-07-18 09:54] LABS: Basophils # (A) 0.1 k/uL (0-0.2); Basophils % (A) 1 %; CHCM 32.2; Eosinophils # (A) 0.2 k/uL (0-0.7); Eosinophils % (A) 2 %; HDW 2.78; HGB 9.7 gm/dL (11.4-16.0); Luc # (Auto) 0.23; Luc % (Auto) 2; Lymphocytes # (A) 1.6 k/uL (1.0-4.8); Lymphocytes % (A) 15 %; MCH 27.2 pg (25.0-35.0); MCHC 32.4 g/dL (31.0-37.0); MCV 84.1 fL (80.0-100.0); Mean Platelet Volume 8.6; Monocytes % (A) 9 %; Neutrophils # (A) 7.5 k/uL (1.3-7.7); Neutrophils % (A) 71 %; RBC 3.56 m/uL (3.80-5.40); RDW 15.6 % (11.5-15.5); WBC 10.6 k/uL (3.8-10.6); WBC (Perox) 10.18
[2016-07-18 10:03] LABS: Anion Gap 12 mmol/L; Blood Urea Nitrogen 13 mg/dL (7-17); Calcium 8.6 mg/dL (8.4-10.2); Carbon Dioxide 14 mmol/L (22-30); Chloride 113 mmol/L (98-107); Glucose 132 mg/dL (74-99); Magnesium 1.9 mg/dL (1.6-2.3); Non-African American GFR(MDRD) >60 (>60 ml/min/1.73 sqM); Phosphorous 1.8 mg/dL (2.5-4.5); Sodium 139 mmol/L (137-145)
--- NOTE | 2016-07-18 10:24 | CDI ---
In responding to this query, please exercise your independent professional judgment. The [facility] Coding Staff and Clinical Documentation Specialists appreciate your assistance in clarifying documentation, maintaining compliance with coding guidelines, accurately documenting patients condition and capturing severity of illness. The fact that a question is asked does not imply that any particular answer is desired or expected. Communication forms are a method of clarifying documentation and are not made part of the Legal Health Record. Thank you in advance for your clarification. Last Revision, July 2015 Mckenna Franklin [address] [place] [address] Documentation Clarification Form Date: 07/18/2016 10:08:00 AM From: Mirella Ro RN, CCDS Admit Date: 07/15/2016 6:14:00 PM Patient Name: Jovanna Yates Visit Number: [id number] Dr. Chato Gann/ Cara Chase CNP Altered mental status was documented as the chief complain upon arrival and requires further specificity. Patient history/risk factors: Depression, CVA, seizure disorder, [place], Drug abuse, HEBERT with hx of hemodialysis, smoker Clinical Indicators: 07/16 Pulmonary Consult: Altered mental status secondary to suspected overdose of benzodiazepines and marijuana. Sepsis secondary to acute urinary tract infection secondary to suspected gram-negative bacilli. Lactic acidosis secondary to above, initially 3.4, improved, currently 1.8. Acute renal failure secondary to severe dehydration and volume depletion Labs: WBC: 39.3/16.6/11.9, BUN 64/45/25, Creatinine 7.99/2.9/1.43, venous Lactic Acid 3.4/1.8, + U/a with + CX for Kleb pneumonia, + Benzo, + THC Temp 95.4 rectal upon arrival X Ray: Chest and abdomen both negative CT AP: "I suspect total colectomy with colonized distal ileum or near-total colectomy with marked inflammatory change involving the distal bowel from ostomy over moderate to large segment in the right abdomen. Cannot exclude some skip lesion or mild inflammatory change involving jejunal loops in the left lower quadrant though noted less prominent." Treatment: 4.5 L IVF Bolus follow 0.9% NS @ 150/hr Zosyn 3.375 gm IVPB q 8 hrs In your professional opinion, please clarify the etiology of the altered mental status, if known. Encephalopathy (specify Type and Underlying Medical Illness) Dementia (if know, specify Type and if with/without Behavioral Disturbance) Other condition (please specify) Unable to determine Please document in your progress notes and discharge summary in order to capture severity of illness and risk of mortality. Include clinical findings that support your diagnosis. FYI: Press F11 to launch patient chart. Place X here if this finding has no clinical significance, is not applicable or if you are not able to provide any additional documentation. ANA LUISA
[2016-07-18] MEDS ORDERED: Phosphorus Replacement Protoco 1 EACH MISC MISCELLANE PRN (10:29)
--- NOTE | 2016-07-18 10:38 | CDI ---
In responding to this query, please exercise your independent professional judgment. The [facility] Coding Staff and Clinical Documentation Specialists appreciate your assistance in clarifying documentation, maintaining compliance with coding guidelines, accurately documenting patients condition and capturing severity of illness. The fact that a question is asked does not imply that any particular answer is desired or expected. Communication forms are a method of clarifying documentation and are not made part of the Legal Health Record. Thank you in advance for your clarification. Last Revision, March 2015 Mckenna Franklin [address] [place] [address] Documentation Clarification Form Date: 07/18/2016 10:23:00 AM From: Mirella Ro RN, CCDS Admit Date: 07/15/2016 6:14:00 PM Patient Name: Jovanna Yates Visit Number: [id number] Dr. Chato Gann Documentation and location in medical record included documentation of Sepsis by Consulting Md's, but not by attending and requires clarification. History/Risk Factors: Chron's, CVA, [place], Depression, Smoker, Drug Abuse Clinical Indicators: 07/16 Pulmonary Consult: "Sepsis secondary to acute urinary tract infection." WBC: 39.3/16.6/11.9 Left Shift: 36.1/13.8/8.5 Lactic acid: 3.8/1.4 Blood cultures: no growth in 48 hrs Urine Cx: + Klebsiella Pneumonia Vitals signs on admission: Temp 95.4 Rectal, HR 72, RR 16, B/P 175/96, Spo2 96% ra Documented Organ Dysfunction: "Altered mental status secondary to suspected overdose of benzodiazepines and marijuana. Acute renal failure secondary to severe dehydration and volume depletion." Documented Infection: Urinary tract infection secondary to suspected gram- negative bacilli." Treatment: ID Consult: no ordered Antibiotics: Zosyn 3.375 GM, IVPB Q 8 hrs IV Bolus: 4.5L In your professional opinion, can you please clarify if these findings signify one of the following conditions, whether the condition is POA, and cause, if known? Sepsis Severe Sepsis Septic Shock Unable to determine Other, please specify * Identify the (suspected) organism * Link or clarify if there is associated (due to/with): - Organ failure - Shock SIRS Criteria: 2 or more of the following may indicate SIRS Temperature < 96.8F(36C) or > 101.0F (38C) Heart Rate > 90 bpm Respiratory Rate > 20 breaths/min or PaCO2 < 32 mmHg White Blood Cell Count > 12,000 or < 4,000 cells/mm3 or > 10% bands Please document in your progress notes and discharge summary in order to capture severity of illness and risk of mortality. Include clinical findings that support your diagnosis. FYI: Press F11 to launch patient chart. Place X here if this finding has no clinical significance, is not applicable or if you are not able to provide any additional documentation. MTDD
[2016-07-18] MEDS: SODIUM PHOSPHATE 10 MMOL in SODIUM CHLORIDE 0.9% 250 ML IVPB SCH ×2 (12:29→14:45)
[2016-07-18] MEDS: DEXTROSE 5% IN WATER 1,000 ML with SODIUM BICARB (1 MEQ/ML) 150 ML IV SCH (12:32)
--- NOTE | 2016-07-18 14:51 | PN ---
CHIEF COMPLAINT: Mental status changes, encephalopathy, and right earache. HISTORY OF PRESENT ILLNESS: This lady is gradually becoming more awake and alert and she is complaining of an earache. She has had no fever or chills. PHYSICAL EXAM: Chest is clear and cardiac exam is normal and the abdomen is soft, nontender and the external ear on the right appears to be normal. IMPRESSION: 1. Right otalgia. 2. Mental status changes. 3. History of substance abuse. PLAN: 1. Continue on current treatment. 2. ( ) consult for the right ear.
--- NOTE | 2016-07-18 15:50 | P.PN ---
Progress Note - Text Interval history: The patient was seen for psychiatric follow-up ,she is alert , oriented to person ,date but she thought that she is at [facility]. She states that she does not recall how she got to this area but she stated that she is on probation for one year as she was arrested end of May for domestic assault and asked if we can send court letter to inform them that she is in hospital Mental status exam: The patient is alert she seated calmly she reports a depressed mood but denies any suicidal or homicidal ideation There is mild psychomotor slowing. No psychomotor agitation. Speech is fluent spontaneous . She is cooperative. She is endorsing no auditory or visual hallucinations no specific delusions. She demonstrates no hypomanic or manic symptoms. She is somatic preoccupied ,her insight to her use for habit forming RX is limited ASSESSMENT :Delirium reaction ,resolved PLAN: Discontinue sitter ,ALEJANDRO will contact her facilities officer ,discharge to outpatient when medically cleared
--- NOTE | 2016-07-18 18:20 | XR ---
EXAMINATION TYPE: XR lumbosacral spine min 4V DATE OF EXAM: 07/18/2016 3:27 PM CLINICAL HISTORY: Low back pain. TECHNIQUE: Frontal, lateral, and oblique images of the lumbar spine are obtained. COMPARISON: CT abdomen pelvis from yesterday. FINDINGS: There are 4 lumbar type vertebral bodies identified. Spina bifida defect S1 level is pres ent The lumbar spine shows satisfactory alignment without evidence of acute fracture or dislocation. Vertebral body heights and disk space heights are within normal limits. The oblique images appear w ithin normal limits.. Cholecystectomy clips are redemonstrated IMPRESSION: No significant new finding is seen to account for patient's symptoms.
--- NOTE | 2016-07-18 19:19 | PN ---
Patient is seen for follow-up for acute kidney injury. Her renal function has improved significantly with serum creatinine down to 0.9 from 7.9 mg/dL on initial admission. Patient is asking for pain medications. She is currently complaining of pain in her right ear. She had been inducing vomiting on initial admission. She is not doing that at this time. On examination, blood pressure is 101/63, heart rate 74 per minute. The patient is afebrile. Examination of the heart S1 and S2. Examination of the lungs: Bilateral breath sounds are heard. ABDOMEN: Soft, nontender. Examination of lower extremities shows no significant edema. Labs show sodium 139, potassium 4.0, CO2 is 14. ASSESSMENT: 1. Acute kidney injury, prerenal, currently improved. 2. Severe metabolic acidosis secondary to gastrointestinal fluid loss through the ileostomy. We will start patient on oral sodium bicarbonate as well as IV bicarb and repeat labs in a.m. 3. Hypophosphatemia, currently being replaced 4. Anemia no active bleeding noted. Iron saturation was 6.6 in November. I will repeat another iron profile. PLAN: Start IV bicarb and oral bicarb. Check iron profile and repeat labs in a.m.
[2016-07-18 21:20] LABS: % Iron Saturation 7.4 % (20-50)
[2016-07-18] MEDS: SODIUM BICARBONATE TAB 650 MG TAB PO SCH (22:12)
[2016-07-19] MEDS: HYDROcodone/APAP 5-325MG 1 EACH TAB PO PRN ×4 (00:01→22:19)
[2016-07-19] MEDS: clonazePAM 1 MG TAB PO PRN ×3 (00:02→17:29)
[2016-07-19] MEDS: PIPERACILLIN-TAZOBACTAM 3.375 GM in DEXTROSE/WATER 1 50ML.BAG IVPB SCH ×2 (01:05→09:25)
[2016-07-19] MEDS: DEXTROSE 5% IN WATER 1,000 ML with SODIUM BICARB (1 MEQ/ML) 150 ML IV SCH ×2 (05:52→22:19)
[2016-07-19] MEDS: HEPARIN SODIUM,PORCINE 5,000 UNIT/ML 1 ML VIAL SQ SCH ×3 (09:07→23:44)
[2016-07-19] MEDS: SODIUM BICARBONATE TAB 650 MG TAB PO SCH ×3 (09:08→22:18)
[2016-07-19] MEDS: PANTOPRAZOLE 40 MG/10 ML VIAL IV SCH (09:18)
[2016-07-19 09:22] LABS: Anion Gap 13 mmol/L; Blood Urea Nitrogen 11 mg/dL (7-17); Calcium 9.3 mg/dL (8.4-10.2); Carbon Dioxide 18 mmol/L (22-30); Chloride 108 mmol/L (98-107); Glucose 147 mg/dL (74-99); Magnesium 1.6 mg/dL (1.6-2.3); Non-African American GFR(MDRD) >60 (>60 ml/min/1.73 sqM); Potassium 3.8 mmol/L (3.5-5.1); Sodium 139 mmol/L (137-145)
[2016-07-19 09:37] LABS: Basophils # (A) 0.1 k/uL (0-0.2); Basophils % (A) 1 %; CH 27.2; CHCM 32.7; Eosinophils # (A) 0.2 k/uL (0-0.7); Eosinophils % (A) 2 %; HCT 32.3 % (34.0-46.0); HDW 2.81; HGB 10.3 gm/dL (11.4-16.0); Luc # (Auto) 0.28; Luc % (Auto) 3; Lymphocytes % (A) 18 %; MCH 26.7 pg (25.0-35.0); MCHC 31.9 g/dL (31.0-37.0); MCV 83.6 fL (80.0-100.0); Mean Platelet Volume 8.3; Monocytes # (A) 0.8 k/uL (0-1.0); Monocytes % (A) 7 %; Neutrophils # (A) 7.9 k/uL (1.3-7.7); Neutrophils % (A) 71 %; RBC 3.87 m/uL (3.80-5.40); RDW 15.9 % (11.5-15.5); WBC 11.1 k/uL (3.8-10.6); WBC (Perox) 11.25
[2016-07-19] MEDS: PANTOPRAZOLE 40 MG TABLET PO SCH (10:42)
[2016-07-19] MEDS: traMADol 50 MG TAB PO PRN (10:42)
--- NOTE | 2016-07-19 11:58 | P.PN ---
Subjective Patient is seen in follow-up for acute kidney injury. Creatinine is down to 0.89 today. She is currently resting in bed. Admits to pain in her right ear. Denies vomiting. Appetite is good. Patient currently does not have an IV access. Vital signs are stable. General: The patient appeared well nourished and normally developed. HEENT: Head exam is unremarkable. Neck is without jugular venous distension. LUNGS: Lungs are clear to auscultation and percussion. Breath sounds decreased. HEART: Rate and Rhythm are regular. First and second heart sounds normal. No murmurs, rubs or gallops. ABDOMEN: Abdominal exam reveals normal bowel sounds. Non-tender and non- distended. No evidence of peritonitis. EXTREMITITES: No clubbing, cyanosis, or edema. Objective - Vital Signs Vital signs: Vital Signs Temp 98.1 F 07/19/16 07:00 Pulse 83 07/19/16 07:00 Resp 16 07/19/16 07:00 BP 113/60 07/19/16 07:00 Pulse Ox 100 07/19/16 07:00 Intake & Output 07/18/16 07/19/16 07/19/16 18:59 06:59 18:59 Intake Total 1700 Output Total 1000 1850 600 Balance 700 -1850 -600 Intake: Oral 1700 Output: Stool 1000 1850 600 Other: Voiding Method Diaper Bedpan Incontinent # Voids 1 2 # Bowel Movements 1 - Labs CBC & Chem 7: 07/19/16 08:01 07/19/16 08:01 Labs: Abnormal Lab Results - Last 24 Hours (Table) 07/18/16 07/19/16 07/19/16 Range/Units 20:21 08:01 08:01 WBC 11.1 H (3.8-10.6) k/uL Hgb 10.3 L (11.4-16.0) gm/dL Hct 32.3 L (34.0-46.0) % RDW 15.9 H (11.5-15.5) % Plt Count 457 H (150-450) k/uL Neutrophils # 7.9 H (1.3-7.7) k/uL Chloride 108 H (98-107) mmol/L Carbon Dioxide 18 L (22-30) mmol/L Glucose 147 H (74-99) mg/dL Phosphorus 2.0 L (2.5-4.5) mg/dL Iron 21 L (37-170) ug/dL % Saturation 7.4 L (20-50) % Microbiology - Last 24 Hours (Table) 07/15/16 18:50 Blood Culture - Preliminary Blood No Growth after 72 hours Assessment and Plan Plan: Assessment: #1. Nonoliguric acute kidney injury mostly prerenal in nature. Resolved. #2. Metabolic acidosis secondary to acute kidney injury and gastrointestinal fluid loss through ileostomy. Improved. #3. Anemia with severe iron deficiency. #4. Urinary tract infection with urine culture positive for Klebsiella. #5. Hypophosphatemia. Plan: Increase dose of oral sodium bicarbonate to 650 mg 3 times daily. IV Ferrlecit 125 mg IV daily for 3 days. First dose today. Encourage oral intake. Add Neutra-Phos.
[2016-07-19] MEDS: ONDANSETRON ODT 4 MG TAB PO PRN (15:18)
[2016-07-19] MEDS: SODIUM FERRIC GLUCONAT-SUCROSE 125 MG in SODIUM CHLORIDE 0.9% 100 ML IVPB SCH (15:49)
[2016-07-19] MEDS: POTAS-SOD-PHOS 278-164-250 MG 1 EACH PACKET PO SCH ×2 (15:50→22:19)
[2016-07-19] MEDS: metroNIDAZOLE 500 MG TAB PO SCH ×2 (16:30→22:18)
[2016-07-19] MEDS: HYDROmorphone 1 MG/ML 1 ML SYRINGE IVP PRN (18:32)
--- NOTE | 2016-07-19 18:54 | XR ---
EXAMINATION TYPE: XR abdomen 2V DATE OF EXAM: 07/19/2016 6:47 PM COMPARISON: 07/17/2016 HISTORY: Pain TECHNIQUE: Single supine KUB image of the abdomen is obtained FINDINGS: Small bowel demonstrates no evidence for dilatation or air fluid levels. Gas and fecal material is seen in non-distended colon. No convincing evidence for pneumoperitoneum. No unusual calcifications. The lung bases are clear. Right mid abdominal ostomy is noted. Cholecystectomy clips are in place. The osseous structures are intact. IMPRESSION: 1. Overall nonobstructive bowel gas pattern.
--- NOTE | 2016-07-19 19:55 | CONS ---
DATE OF CONSULTATION: 07/19/2016 REASON FOR CONSULTATION: Antibiotic management. HISTORY OF PRESENT ILLNESS: The patient is a 36-year-old female with past medical history significant for Crohn's disease, status post subtotal colectomy and ileostomy The patient was noticed to be unresponsive in her shower tub and found by her significant other on 07/15/2016 and the patient was rushed by the EMS to the [facility] ER. The patient was noticed to be less responsive and hypotensive with a significantly elevated white count of 39,000 on admission and hypothermic with temperature of 95.4. The patient did have a CT of abdomen and pelvis which showed subtotal colectomy with colon at distal ileum and marked inflammatory changes involving the distal bowel from ostomy right abdomen. Patient also has UA that was sent, but no stool studies were done. Blood culture was negative. She has been treated with the Zosyn. I was asked today for further recommendations regarding antibiotic therapy. Patient continued complaining of abdominal pain and she has significant amount of liquidy stool in the ostomy bag, which is currently connected to Cortez catheter. Patient is feeling nauseated and did have an episode of vomiting. Patient denies having any chest pain. No shortness of breath or cough. REVIEW OF SYSTEMS: CONSTITUTIONAL: Positive for weakness and hypothermia. EYES: No complaint. ENT: No complaint. RESPIRATORY: No complaint. CARDIOVASCULAR: No complaint. GASTROINTESTINAL: As per HPI. GENITOURINARY: As per HPI. MUSCULOSKELETAL: No complaint. INTEGUMENTARY: No complaint. PSYCHOLOGICAL: No complaint. ENDOCRINE: No complaint. NEUROLOGIC: No complaint. PAST MEDICAL HISTORY: Significant for Crohn's disease, CVA, TIA, fibromyalgia, [place], seizure disorder, hypothyroidism, acute renal insufficiency requiring hemodialysis. PAST SURGICAL HISTORY: History of subtotal colectomy and ileostomy and lithotripsy. SOCIAL HISTORY: No history of smoking, drinking or drug use. FAMILY HISTORY: No pertinent findings were noticed. ALLERGIES: LEVOFLOXACIN, LACTOSE and ASPIRIN. MEDICATIONS: Currently the patient is on Zosyn, Waldo, Klonopin, heparin, Neutra-Phos, Zofran, Protonix, Ultram. On examination, blood pressure is 113/60 with a pulse of 83, temperature 98.1. She is 100% on room air. General description is a middle-age female lying in bed in no distress. No tachypnea or accessory muscle of respiration use. HEENT examination shows slight pallor, no scleral icterus. Oral mucous membrane dry. NECK: Trachea is central. No thyromegaly. LUNGS: Unlabored breathing. Clear to auscultation anteriorly. HEART: S1, S2. Regular rate and rhythm. ABDOMEN: Soft, slightly distended. No guarding or rigidity. EXTREMITIES: No edema of feet. SKIN EXAMINATION: No rash or mass palpable. NEUROLOGICAL: The patient is awake, alert, oriented x3. Mood and affect normal. LABS: Hemoglobin is 10.8, white count 11.3 with a BUN of 11, creatinine 0.89. Urine with Klebsiella. UA was significantly positive. Blood culture had been negative. DIAGNOSTIC IMPRESSION AND PLAN: Patient admitted to the hospital with unresponsiveness and possible component of sepsis in patient who has significantly elevated white count and hypothermia from and tachycardic meeting criteria for systemic inflammatory response syndrome with the source possibly abdominal versus urinary tract infection that has been showing Klebsiella as sensitive pathogen. However, there are also significant inflammatory changes in her distal ileum likely from exacerbation of underlying Crohn's colitis in a patient who has significant diarrhea underlying infection as well as infectious colitis needs to be ruled out as well. PLAN: 1. Will obtain stool for Clostridium difficile as well as stool culture. 2. Will discontinue the Zosyn. 3. Patient was started on Rocephin and Flagyl. This should cover both the exacerbation of Crohn's colitis as well as urinary tract infection. 4. Will follow up with clinical condition and cultures to further adjust the medication if needed. Thank you for this consultation. Will follow this patient along with you. ANA LUISA
[2016-07-19 21:21] LABS: Basophils # (A) 0.1 k/uL (0-0.2); Basophils % (A) 1 %; CH 27.4; Eosinophils # (A) 0.2 k/uL (0-0.7); Eosinophils % (A) 2 %; HCT 33.2 % (34.0-46.0); HDW 2.82; HGB 10.7 gm/dL (11.4-16.0); Luc # (Auto) 0.31; Luc % (Auto) 3; Lymphocytes # (A) 1.7 k/uL (1.0-4.8); Lymphocytes % (A) 15 %; MCH 26.9 pg (25.0-35.0); MCHC 32.3 g/dL (31.0-37.0); MCV 83.3 fL (80.0-100.0); Mean Platelet Volume 7.1; Monocytes # (A) 0.7 k/uL (0-1.0); Monocytes % (A) 6 %; Neutrophils # (A) 8.7 k/uL (1.3-7.7); Neutrophils % (A) 74 %; RBC 3.99 m/uL (3.80-5.40); RDW 15.8 % (11.5-15.5); WBC 11.7 k/uL (3.8-10.6); WBC (Perox) 12.21
[2016-07-19 21:39] LABS: ALT 35 U/L (9-52); AST 22 U/L (14-36); Alkaline Phosphatase 93 U/L (38-126); Amylase 99 U/L (30-110); Anion Gap 14 mmol/L; Blood Urea Nitrogen 14 mg/dL (7-17); Calcium 9.5 mg/dL (8.4-10.2); Carbon Dioxide 23 mmol/L (22-30); Chloride 100 mmol/L (98-107); Glucose 100 mg/dL (74-99); Non-African American GFR(MDRD) >60 (>60 ml/min/1.73 sqM); Potassium 3.2 mmol/L (3.5-5.1); Sodium 137 mmol/L (137-145); Total Bilirubin 0.3 mg/dL (0.2-1.3); Total Protein 6.7 g/dL (6.3-8.2)
--- NOTE | 2016-07-19 21:57 | PN ---
DATE OF SERVICE: 07/19/2016 CHIEF COMPLAINT: Delirium, mental status changes, psychosis and pain in the right ear. HISTORY OF PRESENT ILLNESS: This lady is still complaining of a lot of pain in the ( ) ear and was sent to be seen by ENT. PHYSICAL EXAMINATION: The ear looks normal. It is not red or tender. She is a little bit more awake and alert today. CHEST: Clear. CARDIAC: Normal. ABDOMEN: Soft, nontender. IMPRESSION: 1. Mental status changes. 2. Psychosis. 3. Right ear pain. PLAN: ENT consult.
[2016-07-20] MEDS: HYDROmorphone 1 MG/ML 1 ML SYRINGE IVP PRN ×4 (00:31→18:08)
[2016-07-20 00:35] LABS: Appearance,Urine Cloudy (Clear); Bacteria,Urine Rare /hpf; Bilirubin,Urine Negative (Negative); Glucose,Urine (UA) 1+ (Negative); Ketones,Urine Negative (Negative); Leukocyte Esterase,Urine Moderate (Negative); Mucus,Urine Rare /hpf; Nitrite,Urine Negative (Negative); PH, Urine 6.5 (5.0-8.0); Particle Count 4074; Protein,Urine 1+ (Negative); RBC,Urine 136 /hpf (0-5); Specific Gravity,Urine 1.011 (1.001-1.035); Squamous Epithelial Cell,Urine 5 /hpf (0-4); UA Billing (MACRO vs. MICRO) MICRO; Urobilinogen,Urine <2.0 mg/dL (<2.0); WBC,Urine 16 /hpf (0-5)
[2016-07-20] MEDS: DEXTROSE 5% IN WATER 1,000 ML with SODIUM BICARB (1 MEQ/ML) 150 ML IV SCH (05:11)
[2016-07-20] MEDS: HYDROcodone/APAP 5-325MG 1 EACH TAB PO PRN ×2 (08:10→18:59)
[2016-07-20] MEDS: POTAS-SOD-PHOS 278-164-250 MG 1 EACH PACKET PO SCH ×3 (08:10→22:06)
[2016-07-20] MEDS: SODIUM BICARBONATE TAB 650 MG TAB PO SCH ×3 (08:10→22:06)
[2016-07-20] MEDS: HEPARIN SODIUM,PORCINE 5,000 UNIT/ML 1 ML VIAL SQ SCH ×2 (08:10→14:40)
[2016-07-20] MEDS: metroNIDAZOLE 500 MG TAB PO SCH ×3 (08:11→22:06)
[2016-07-20] MEDS: PANTOPRAZOLE 40 MG TABLET PO SCH (08:12)
[2016-07-20] MEDS: clonazePAM 1 MG TAB PO PRN (08:12)
[2016-07-20] MEDS: ONDANSETRON ODT 4 MG TAB PO PRN ×3 (08:22→22:08)
[2016-07-20] MEDS ORDERED: Potassium Replacement Protocol 1 EACH MISC MISCELLANE PRN (08:22)
[2016-07-20 09:03] LABS: Anisocytosis Slight; Basophils # (A) 0.1 k/uL (0-0.2); Basophils % (A) 1 %; CH 27.5; CHCM 32.6; Eosinophils # (A) 0.4 k/uL (0-0.7); Eosinophils % (A) 4 %; HCT 35.7 % (34.0-46.0); HDW 2.84; HGB 11.3 gm/dL (11.4-16.0); Luc # (Auto) 0.33; Luc % (Auto) 3; Lymphocytes # (A) 1.7 k/uL (1.0-4.8); Lymphocytes % (A) 18 %; MCH 26.9 pg (25.0-35.0); MCHC 31.7 g/dL (31.0-37.0); MCV 84.7 fL (80.0-100.0); Monocytes # (A) 0.6 k/uL (0-1.0); Monocytes % (A) 6 %; Neutrophils # (A) 6.7 k/uL (1.3-7.7); Neutrophils % (A) 68 %; RBC 4.22 m/uL (3.80-5.40); RDW 16.1 % (11.5-15.5); WBC 9.8 k/uL (3.8-10.6); WBC (Perox) 10.44
[2016-07-20] MEDS: SODIUM FERRIC GLUCONAT-SUCROSE 125 MG in SODIUM CHLORIDE 0.9% 100 ML IVPB SCH (09:05)
[2016-07-20] MEDS: POTASSIUM CHLORIDE ER 20 MEQ TAB.ER PO SCH ×2 (09:05→09:41)
[2016-07-20 09:09] LABS: Anion Gap 14 mmol/L; Blood Urea Nitrogen 16 mg/dL (7-17); Calcium 9.6 mg/dL (8.4-10.2); Carbon Dioxide 25 mmol/L (22-30); Chloride 99 mmol/L (98-107); Glucose 89 mg/dL (74-99); Magnesium 1.4 mg/dL (1.6-2.3); Non-African American GFR(MDRD) >60 (>60 ml/min/1.73 sqM); Phosphorous 3.5 mg/dL (2.5-4.5); Potassium 3.4 mmol/L (3.5-5.1); Sodium 138 mmol/L (137-145)
[2016-07-20] MEDS: POTASSIUM CHLORIDE 10 MEQ, LIDOCAINE 2% INJ 10 MG in SODIUM CHLORIDE 0.9% 100 ML IVPB SCH ×2 (10:20→12:25)
[2016-07-20] MEDS ORDERED: clonazePAM 0.5 MG TAB PO PRN (14:05)
[2016-07-20] MEDS ORDERED: Magnesium Replacement Protocol 1 EACH MISC MISCELLANE PRN (14:59)
[2016-07-20] MEDS: MAGNESIUM SULFATE-D5W PMX 1 GM in DEXTROSE/WATER 1 100ML.BAG IVPB SCH ×3 (15:51→18:58)
[2016-07-20] MEDS ORDERED: POTASSIUM CHLORIDE ER 20 MEQ TAB.ER PO SCH (16:00)
--- NOTE | 2016-07-20 17:04 | PN ---
DATE OF SERVICE: 07/20/2016 REASON FOR FOLLOWUP: Klebsiella UTI. INTERVAL HISTORY: The patient is afebrile. Her abdominal pain is currently controlled. She still has some nausea. Vomiting has decreased. Denies having any chest pain. No shortness of breath or cough. On examination, blood pressure is 106/60 with a pulse of 78, temperature 97.3. She is 98% on room air. General description is a middle-aged female lying in bed in no distress. RESPIRATORY SYSTEM: Unlabored breathing. Clear to auscultation anteriorly. HEART: S1, S2. Regular rate and rhythm. ABDOMEN: Soft. EXTREMITIES: No edema of the feet. LABS: Hemoglobin 11.3, white count 9.8. BUN of 16, creatinine 1.01. DIAGNOSTIC IMPRESSION AND PLAN: Patient with admission to hospital with sepsis which is likely multifactorial. The patient did have a component of UTI. Urine has klebsiella, for which the patient is continued on Rocephin. Flagyl was added to cover for possible chron's exacerbation. Stool cultures are currently pending. Continue supportive care. ANA LUISA
--- NOTE | 2016-07-20 17:41 | PN ---
Patient is seen for follow-up for acute kidney injury. Her renal function has significantly improved. Patient, however, remained acidotic and she had lost her IV yesterday. IV fluids were restarted. She looks better today. Patient is not complaining of pain. On examination, blood pressure is 106/60, heart rate 78 per minute. She is afebrile. Examination of the heart S1 and S2. Examination of the lungs: Bilateral breath sounds are heard. Examination of lower extremities shows no evidence of edema. ABDOMEN: Soft. Labs show sodium 138, potassium 3.4, BUN of 16, serum creatinine 1.01. ASSESSMENT: 1. Acute kidney injury, acute tubular necrosis, currently significantly improved. Patient remains volume depleted as her oral intake is not as good we will continue with IV fluids, but I will change to normal saline. 2. Hypokalemia. Will continue to replace. 3. History of Crohn's disease, status post colectomy with an ileostomy. 4. Urinary tract infection with Klebsiella pneumonia. 5. Iron deficiency, maintained on IV iron. PLAN: Change IV fluids to normal saline and then repeat labs in a.m.
[2016-07-20] MEDS: SODIUM CHLORIDE 0.9% 1,000 ML IV SCH (17:55)
--- NOTE | 2016-07-20 18:26 | PN ---
DATE OF SERVICE: 07/20/2016 CHIEF COMPLAINT: 1. Lethargy and mental status changes. 2. Nausea and vomiting. HISTORY OF PRESENT ILLNESS: This lady is still complaining of abdominal pain and studies have not demonstrated anything abnormal up to this point in time. She is still vomiting. She has had no hematemesis. She is complaining of generalized abdominal pain. PHYSICAL EXAMINATION: HEENT: Normal. The chest is clear. Cardiac exam is unremarkable. The abdomen is flat and soft. Bowel sounds are heard. She has generalized mild tenderness throughout. IMPRESSION: 1. Nausea and vomiting, etiology unknown. 2. Lethargy. 3. ? encephalopathy. 4. Abdominal pain. 5. History of bowel disease. PLAN: Continue to work up etiology of her pain and nausea.
[2016-07-21] MEDS: HYDROmorphone 1 MG/ML 1 ML SYRINGE IVP PRN ×2 (00:03→06:06)
[2016-07-21] MEDS: HEPARIN SODIUM,PORCINE 5,000 UNIT/ML 1 ML VIAL SQ SCH ×2 (00:04→08:28)
[2016-07-21] MEDS: SODIUM CHLORIDE 0.9% 1,000 ML IV SCH (06:09)
[2016-07-21 08:06] VITALS: BP 102/56; PULSE 70; RESP 20; TEMP 99.7
[2016-07-21] MEDS: metroNIDAZOLE 500 MG TAB PO SCH (08:28)
[2016-07-21] MEDS: PANTOPRAZOLE 40 MG TABLET PO SCH (08:28)
[2016-07-21] MEDS: HYDROcodone/APAP 5-325MG 1 EACH TAB PO PRN (08:28)
[2016-07-21] MEDS: POTAS-SOD-PHOS 278-164-250 MG 1 EACH PACKET PO SCH (08:28)
[2016-07-21] MEDS: SODIUM BICARBONATE TAB 650 MG TAB PO SCH (08:28)
[2016-07-21] MEDS ORDERED: POTASSIUM CHLORIDE ER 20 MEQ TAB.ER PO SCH (09:00)
[2016-07-21] MEDS: SODIUM FERRIC GLUCONAT-SUCROSE 125 MG in SODIUM CHLORIDE 0.9% 100 ML IVPB SCH (09:43)
[2016-07-21] MEDS: ONDANSETRON ODT 4 MG TAB PO PRN (09:54)
[2016-07-21 10:26] LABS: ALT 33 U/L (9-52); AST 23 U/L (14-36); Alkaline Phosphatase 66 U/L (38-126); Anion Gap 13 mmol/L; Blood Urea Nitrogen 14 mg/dL (7-17); Calcium 9.5 mg/dL (8.4-10.2); Carbon Dioxide 25 mmol/L (22-30); Chloride 103 mmol/L (98-107); Glucose 116 mg/dL (74-99); Magnesium 2.2 mg/dL (1.6-2.3); Non-African American GFR(MDRD) >60 (>60 ml/min/1.73 sqM); Sodium 141 mmol/L (137-145); Total Bilirubin 0.4 mg/dL (0.2-1.3); Total Protein 6.3 g/dL (6.3-8.2)
[2016-07-21 10:28] LABS: Potassium 4.5 mmol/L (3.5-5.1)
--- NOTE | 2016-07-21 11:25 | P.PN ---
Subjective Patient is seen in follow-up for acute kidney injury. Creatinine is down to 0.85 today. She is currently resting in bed. Denies vomiting. Appetite is good. No active complaints at this time. Vital signs are stable. General: The patient appeared well nourished and normally developed. HEENT: Head exam is unremarkable. Neck is without jugular venous distension. LUNGS: Lungs are clear to auscultation and percussion. Breath sounds decreased. HEART: Rate and Rhythm are regular. First and second heart sounds normal. No murmurs, rubs or gallops. ABDOMEN: Abdominal exam reveals normal bowel sounds. Non-tender and non- distended. No evidence of peritonitis. EXTREMITITES: No clubbing, cyanosis, or edema. Objective - Vital Signs Vital signs: Vital Signs Temp 99.7 F H 07/21/16 07:00 Pulse 70 07/21/16 07:00 Resp 20 07/21/16 07:00 BP 102/56 07/21/16 07:00 Pulse Ox 98 07/21/16 07:00 Intake & Output 07/20/16 07/21/16 07/21/16 18:59 06:59 18:59 Intake Total 350 100 Output Total 2595 Balance -2245 100 Weight 46.5 kg Intake: Intake, IV Titration 350 100 Amount Magnesium Sulfate-D5w Pmx 100 1 gm In Dextrose/Water 1 100ml.bag @ 100 mls/hr IVPB Q1H KACEY Rx#: [id number] Potassium Chloride 10 meq 200 Lidocaine 2% Inj 10 mg In Sodium Chloride 0.9% 100 ml @ 100 mls/hr IVPB Q1HR KACEY Rx#:[id number] Sodium Ferric Gluconat- 100 Sucrose 125 mg In Sodium Chloride 0.9% 100 ml @ 100 mls/hr IVPB DAILY KACEY Rx#:[id number] cefTRIAXone 1,000 mg In 50 Sodium Chloride 0.9% 50 ml @ 100 mls/hr IVPB Q24HR KACEY Rx#:[id number] Output: Urine 45 Stool 2550 Other: Voiding Method Toilet Toilet # Voids 3 3 - Labs CBC & Chem 7: 07/20/16 08:15 07/21/16 09:33 Labs: Abnormal Lab Results - Last 24 Hours (Table) 07/20/16 07/21/16 Range/Units 15:23 09:33 Potassium 5.5 H (3.5-5.1) mmol/L Glucose 116 H (74-99) mg/dL Albumin 3.4 L (3.5-5.0) g/dL Microbiology - Last 24 Hours (Table) 07/19/16 21:04 Blood Culture - Preliminary Blood No Growth after 24 hours 07/19/16 20:37 Blood Culture - Preliminary Blood No Growth after 24 hours 07/15/16 18:50 Blood Culture - Preliminary Blood No Growth after 120 hours 07/19/16 00:20 Urine Culture - Preliminary Urine,Voided Assessment and Plan Plan: Assessment: #1. Nonoliguric acute kidney injury mostly prerenal in nature. Resolved. #2. Metabolic acidosis secondary to acute kidney injury and gastrointestinal fluid loss through ileostomy. Resolved. #3. Anemia with severe iron deficiency. #4. Urinary tract infection with urine culture positive for Klebsiella. #5. Hypophosphatemia. Improved. Plan: Decrease sodium bicarbonate to 650 mg twice daily. IV Ferrlecit 125 mg IV daily for 3 days. Third dose today. Encourage oral intake. Discontinue phosphate supplementation. Stable to be discharged home from nephrology standpoint.
[2016-07-21] MEDS ORDERED: clonazePAM 0.5 MG TAB PO PRN (11:55)
--- NOTE | 2016-07-21 12:09 | P.PN ---
Progress Note - Text Interval history: Patient was seen for psychiatric follow-up .The patient was laying in bed ,marginal grooming , ,evasive when talking about SA issue and current legal problem,somatic preoccupied :nausea and pain ,stated that she wants to get better so she can take care of her fiancee of 4 years as he has MS and epilepsy,patient denies any depressive symptoms or psychotic features Mental status exam: The patient is a female ,there is good eye contact Hygiene grooming impaired. Speech is non spontaneous ,brief answer , was , She continues to ask for PRN Opium and Benzodiazepine. She denies any hallucinations ,denies any suicidal or homicidal ideation Insight and judgment are fair No abnormal involuntary movements observed. PLAN: Decrease dose of PRN KLONOPIN to minimize interaction between sedative- hypnotic and Opium ,limit setting on her drug seeking behavior ,refer to outpatient when medically cleared
--- NOTE | 2016-07-21 12:37 | PN ---
DATE OF SERVICE: 07/21/2016 Reason for followup is Klebsiella urinary tract infection and possible Crohn's exacerbation. INTERVAL HISTORY: The patient is afebrile. Her abdominal pain is currently improved. Patient denies further nausea, vomiting, denies having any chest pain or shortness of breath or cough. On examination, blood pressure is 107/57 with a pulse of 72, temperature 98.7. She is 100% on room air. General description is a middle-age female, lying in bed in no distress. RESPIRATORY SYSTEM: Unlabored breathing. Clear to auscultation anteriorly. HEART: S1, S2, regular rate and rhythm. ABDOMEN: Soft. LABS: BUN of 14 with a creatinine 0.85. Repeat urine cultures were negative. DIAGNOSTIC IMPRESSION AND PLAN: The patient admitted to hospital with sepsis, multifactorial and patient did have evidence of a Klebsiella urinary tract infection. Did have a LEVOFLOXACIN allergy. Currently on Rocephin and Flagyl. Plan to finish therapy with p.o. Ceftin and Flagyl for another 10 days. Continue supportive care.
[2016-07-21 12:51] VITALS: BMI 19.3
--- NOTE | 2016-07-21 14:18 | P.DS ---
Providers Date of admission: 07/15/16 18:14 Expected date of discharge: 07/21/16 Attending physician: Chato Gann Consults: 07/16/16 10:53 Consult Physician Urgent Consulting Provider: Yasmeen Kennedy Consult Reason/Comments: anxiety, failure to thrive Do you want consulting provider notified?: Yes 07/19/16 09:19 Consult Physician Stat Consulting Provider: Morgan Calix Consult Reason/Comments: Recommendations antibiotics Do you want consulting provider notified?: Yes Primary care physician: Stated None Hospital Course: 36-year-old female who was admitted with acute mental status changes. Apparently the patient was found at home in the shower apparently after several hours could have been up to 10 hours on arrival to the emergency room the patient was quite 100 but able to protect her airway. The urine drug screen was positive for benzodiazepine and marijuana lactic acid 3.4 patient was resuscitated with 4 L of normal saline and admitted to the intensive care unit. Patient was felt to have significant acute renal failure felt to be due to dehydration the creatinine on admission was 7.9 patient was treated with recommendations by nephrology service. Patient has a previous narcotic prescription drug abuse currently is on suboxone. Patient reportedly lives with her fianc who has multiple sclerosis who she states she tries to take care of. Patient has had frequent prior hospitalizations for similar presentation. Patient does have a past psychiatric history has been admitted inpatient psychiatric care numerous admissions. Unclear whether she follows up in the outpatient setting for mental health service. Patient is a poor historian. Her drug screen this admission was positive for marijuana. and benzodiazepine This admission patient was followed by the mental health service as well as nephrology for a acute kidney injury mostly pre-renal which had resolved. Additionally this admission patient was treated for sepsis due to a UTI infection positive urine culture for Klebsiella in which the patient was followed by infectious disease Dr. Triston quiroz. Patient was to be discharged on Ceftin and Flagyl for another 10 days recommendations from all consulting physicians over the course of hospitalization were initiated patient's symptoms improved patient's electrolytes were corrected patient was able to be discharged with the plan she would follow-up with her physicians. [place] Patient reportedly has a history of a depressive disorder. Also this admission patient was admitted with altered mental status suspect due to acute toxic encephalopathy unintentional benzodiazepine overdose suspected At the time of the discharge the creatinine was down to 0.8 5 repeat urine culture was negative patient was up ambulating independently on the unit was anxious to be discharged home patient was asking for pain prescription instructed patient to follow-up with her family doctor to continue with outpatient medical care psych service recommended decreasing the dose of when necessary Klonopin to minimize interaction between sedative hypnotic and opium and to limit the setting on her drug-seeking behavior Infectious disease Dr. Calix. recommended a 10 day course in the outpatient setting of Ceftin and Flagyl Impression discharge diagnosis Present on admission acute toxic encephalopathy suspect due to unintentional benzodiazepine overdose Present on admission severe sepsis with septic shock suspect due to a acute UTI suspect gram-negative bacilli Drug-seeking behavior chronic A prior history of Crohn's disease with an ileostomy Mild protein calorie malnutrition underweight LEON 19 suspect due to poor caloric intake Present on admission clinical dehydration Present on admission hypotensive necessitating resuscitation of septic shock with 4 L of fluid History of a major depressive disorder suspect current delirium due to multifactorial causes due to sepsis due to the acute urinary tract infection with unintentional drug overdose with benzodiazepine Nonoliguric acute kidney injury mostly prerenal in nature. Resolved. Metabolic acidosis secondary to acute kidney injury and gastrointestinal fluid loss through ileostomy. Resolved. Anemia with severe iron deficiency. Urinary tract infection with urine culture positive for Klebsiella. Hypophosphatemia. Improved. History of ileostomy Severe electrolyte abnormality hypokalemic Chronic every day smoker 1 pack a day suspect COPD undiagnosed The above dictated assessment and findings were discussed with dr jazmyn Cedeño and the plan of care have been dictated as directed. Cara Chase nurse practitioner acting as a scribe for dr mendes Patient Condition at Discharge: Serious Plan - Discharge Summary New Discharge Prescriptions: Cefuroxime Axetil [Ceftin] 500 mg PO BID #20 tab metroNIDAZOLE [Flagyl] 500 mg PO TID #30 tab Discharge Medication List Buprenorphine HCl/Naloxone HCl [Suboxone 8 mg-2 mg Sl Film] 1.25 film SL DAILY 11/30/15 [History] Baclofen [Lioresal] 10 mg PO TID 01/27/16 [History] Gabapentin [Neurontin] 100 mg PO TID 01/27/16 [History] traZODone HCL 50 mg PO HS 07/15/16 [History] Cefuroxime Axetil [Ceftin] 500 mg PO BID #20 tab 07/21/16 [Rx] metroNIDAZOLE [Flagyl] 500 mg PO TID #30 tab 07/21/16 [Rx] Follow up Appointment(s)/Referral(s): [facility] [place] [Outside] - 1 Week [facility], [NON-STAFF] - None,Stated [Primary Care Provider] - 1-2 days Patient Instructions/Handouts: Sepsis (GEN) Activity/Diet/Wound Care/Special Instructions: NO smoking, cessation information provided. Regular diet. Discharge Disposition: HOME SELF-CARE
--- NOTE | 2016-07-21 20:33 | PN ---
DATE OF SERVICE: 07/21/2016 CHIEF COMPLAINT: Mental status changes, abdominal pain and possible encephalopathy. HISTORY OF PRESENT ILLNESS: This lady is doing well. She is fully awake and alert now and she is eating. The abdominal pain is gone. PHYSICAL EXAM: Chest is clear and cardiac is normal. The abdomen is flat and soft and ileostomy is normal. IMPRESSION: 1. Status post encephalopathy. 2. Acute psychosis. 3. Abdominal pain. PLAN: Probably home today and this will be arranged by the nurse practitioner.
[2016-07-21] MEDS ORDERED: SODIUM BICARBONATE TAB 650 MG TAB PO SCH (21:00)
== END 2016-07-21 16:00 | disposition home health service (06) | DRG 871 ==
LOC: EC 12:29 → 6ICU 18:14 → 4MS4W 07-16 16:42
PROVIDERS: ADMIT Family Medicine; ATTEND Family Medicine
DX: A41.9 Sepsis, unspecified organism (principal); G92 Toxic encephalopathy; N17.0 Acute kidney failure with tubular necrosis; R65.21 Severe sepsis with septic shock; D50.9 Iron deficiency anemia, unspecified; F17.210 Nicotine dependence, cigarettes, uncomplicated; E87.2 Acidosis; E44.1 Mild protein-calorie malnutrition; Z68.1 Body mass index [BMI] 19.9 or less, adult; F23 Brief psychotic disorder; N39.0 Urinary tract infection, site not specified; E83.39 Other disorders of phosphorus metabolism; E03.9 Hypothyroidism, unspecified; B96.1 Klebsiella pneumoniae [K. pneumoniae] as the cause of diseases classified elsewhere; E86.0 Dehydration; E87.6 Hypokalemia; F32.9 Major depressive disorder, single episode, unspecified; F41.9 Anxiety disorder, unspecified; I25.2 Old myocardial infarction; M79.7 Fibromyalgia; R62.7 Adult failure to thrive; Z76.5 Malingerer [conscious simulation]; Z79.899 Other long term (current) drug therapy; Z86.14 Personal history of Methicillin resistant Staphylococcus aureus infection; Z86.73 Personal history of transient ischemic attack (TIA), and cerebral infarction without residual deficits; Z87.442 Personal history of urinary calculi; Z90.49 Acquired absence of other specified parts of digestive tract; Z88.6 Allergy status to analgesic agent; Z88.1 Allergy status to other antibiotic agents; T42.4X1A Poisoning by benzodiazepines, accidental (unintentional), initial encounter
CPT/HCPCS: 36415; 71010; 72110; 74000; 74020; 74176; 80048; 80053; 80306; 80320; 81001; 82140; 82150; 82533; 82550; 82553; 83520; 83540; 83550; 83605; 83690; 83735; 84100; 84132; 84484; 85025; 85730; 87040; 87045; 87046; 87077; 87086; 87186; 87324; 93005; 96361; 96365; 96366; 99291